=== PATIENT | male | born 1970 | race Caucasian/White ===

== ENCOUNTER 2017-04-15 08:51 | Inpatient (IN) | payer BC ==
[2017-04-09 11:10] LABS: BASOPHILS 0.2 %; BASOPHILS ABSOLUTE 0.01 10/3/uL (0.0-0.16); EOSINOPHILS 1.3 %; EOSINOPHILS ABSOLUTE 0.07 10/3/uL (0.0-0.53); HEMATOCRIT 41.7 % (40.0-51.0); HEMOGLOBIN 14.5 g/dL (13.6-17.8); LYMPHOCYTES 32.7 %; LYMPHOCYTES ABSOLUTE 1.83 10/3/uL (0.67-4.30); MEAN CORPUS HGB CONC 34.8 g/dL (32.0-36.0); MEAN CORPUSCULAR HEMOGLOB 31.3 pg (26.0-34.0); MEAN CORPUSCULAR VOLUME 89.9 fL (80-100); MEAN PLATELET VOLUME 9.8 fL (9.2-13.0); MONOCYTES 9.3 %; MONOCYTES ABSOLUTE 0.52 10/3/uL (0.21-1.20); NEUTROPHILS 56.5 %; NEUTROPHILS ABSOLUTE 3.16 10/3/uL (2.02-8.40); PLATELET COUNT 212 10/3/uL (150-400); RBC DISTRIBUTION WIDTH 11.9 % (12.0-16.0); RED CELL COUNT 4.64 10/6/uL (4.7-6.1); WHITE BLOOD CELLS 5.6 10/3/uL (4.5-10.5)
[2017-04-09 11:12] LABS: MANUAL DIFF NO %
[2017-04-09 11:19] LABS: INTERNATIONAL NORMAL RATI 1.2 UNITS (-); PARTIAL THROMBO TIME 32.4 SEC (22.5-37.2); PROTIME (NOT ORD) 14.8 SEC (12.0-14.5)
[2017-04-09 11:34] LABS: A/G RATIO 1.5 (0.7-1.9); ALBUMIN 4.1 G/DL (3.5-5.0); ALKALINE PHOSPHATASE 105 U/L (45-117); BUN (BLOOD UREA NITROGEN) 18 MG/DL (6-23); CALCIUM, SERUM 9.4 MG/DL (8.5-10.4); CHLORIDE, SERUM 106 MMOL/L (96-112); CO2 (CARBON DIOXIDE) 31 MMOL/L (24-34); CREATININE 1.02 MG/DL (0.70-1.30); GFR AFRICAN AMERICAN 102 ML/MIN (>=60); GFR NON AFRICAN AMERICAN 88 ML/MIN (>=60); GLOBULIN 2.8 G/DL (2.5-4.1); GLUCOSE, SERUM 101 MG/DL (60-99); SGOT(AST) 10 U/L (5-40); SGPT(ALT) 19 U/L (5-65); SODIUM, SERUM 143 MMOL/L (135-148); TOTAL BILIRUBIN 0.5 MG/DL (0-1.2); TOTAL PROTEIN 6.9 G/DL (6.0-8.5)
[2017-04-09 13:18] LABS: ASCORBIC ACID (UR NOT ORDER) 40 (NEG); BILIRUBIN, URINE NEGATIVE (NEG); KETONE, URINE NEGATIVE (NEG); LEUKOCYTE ESTERASE(NOT OR NEG (NEG); WBC (NOT ORDERED) (RFLEX) < 1 (0-5)
--- NOTE | ~2017-04-15 | OP ---
Record Of Operation [facility] [address] [place]. [address] NAME: MISA SÁNCHEZ : 72 STATUS : ADM IN PAT#: [id number] AGE: 47 ADM/REG DATE : 04/15/17 MR#: [id number] REPORT SERV DATE: 04/15/17 DICTATED BY: FALGUNI GAXIOLA DATE: 04/15/17 REPORT STATUS : Draft TRANSCRIBED BY: MODL DATE: 04/15/17 DATE OF PROCEDURE: 04/15/2017 PREOPERATIVE DIAGNOSIS: Right knee failed open reduction and internal fixation with valgus and retained hardware/significant osteoarthritis. POSTOPERATIVE DIAGNOSIS: Right knee failed open reduction and internal fixation with valgus and retained hardware/significant osteoarthritis. PROCEDURE PERFORMED: Right total knee arthroplasty complex with hardware removal. SURGEON: Falguni Gaxiola M.D. SALESPERSON CHIL[employer]: Karla Brand. ANESTHESIA: General under adductor block and local infusion. PROCEDURE IN DETAIL: The patient is clearly identified, and after obtaining informed consent, he is brought to the operating room at [facility] where he is induced under general anesthesia, has his right lower extremity prepped and draped in the usual manner, and this concluded, after having noted his previous incisions, one far lateral and one more anterolateral, but not appropriate for total knee arthroplasty, an anteromedial approach to the knee is formed. Subsequently, after time-out procedure is performed, Tenzin exsanguination is performed, tourniquet elevated to 350 mmHg and successfully tested, and through an approximately 8-inch incision, the skin is divided, fascial planes are elevated, and medial parapatellar approach is then formed. Fluid and synovitis are encountered. Exposing, elevating, and removing appropriate soft tissues, the knee is then carefully flexed, the patella is everted, and the lateral femoral metaphyseal with a diaphyseal plate is encountered. The screws are carefully removed. Two of the torque screws took some time to find sterile instruments for, but eventually are removed and the plate subsequently removed uneventfully. This concluded, attention focused initially on the patella where it is calipered, planed, and reproduced with size with a 41 patella. Subluxing the patella and flexing the knee, osteophytes are removed on the distal femur and the three distal femoral screws that are impinging and rubbing on the proximal lateral tibia articular surface have been removed. There is a significant paucity of bone to this area consistent with Hoffa's type fracture of the lateral condyle and posterior condyle and this all soft tissues are removed. Subsequently, the femoral canal is entered and vented reaming up to 18 mm. The distal femoral cut is utilized for the TC3 given the concern for stability of the patient's knee, given the fracture and reconstructions in the past. The distal cut is formed. Anterior, posterior, chamfer, and box cuts are all made for TC3 component size 5, and this looking quite good with an 8 posterior mm augment laterally. The proximal tibia is exposed. The extramedullary guide is utilized to performing the proximal division. The screw is encountered and careful dissection laterally reveals both screws present there are removed. The small anchor and the tibia is not visualized through the surgery. Subsequently, the RP size 5 tibia felt appropriate, it is prepared for, and trialed after removing meniscal tissues and to the whole case, significant synovitic-type impinging tissues. Trialing of 10 Record Of Operation [address] [place]. [address] NAME: MISA SÁNCHEZ : 72 STATUS : ADM IN PAT#: [id number] AGE: 47 ADM/REG DATE : 04/15/17 MR#: [id number] REPORT SERV DATE: 04/15/17 DICTATED BY: FALGUNI GAXIOLA DATE: 04/15/17 REPORT STATUS : Draft TRANSCRIBED BY: MICHELLE DATE: 04/15/17 mm thickness is quite good with full extension, flexion comfortably to just beyond 90 degrees. Given the patient's preoperative state, this is felt to be quite acceptable. This concluded, the area is copiously irrigated. On the back table, the components are made, and subsequently with standard cement technique, the components are then placed in position. Permanent polyethylene is placed, copious irrigation is performed, and the local infusion is applied. Tranexamic acid is utilized during the curing of the cement, and this all concluded, the joints are then carefully closed in layers over Hemovac drain and the leg is carefully cleansed and dressed. The patient is allowed to awaken and is transferred to the recovery room in stable condition having tolerated the procedure well. ESTIMATED BLOOD LOSS: 100 mL. FLUIDS: 1000 mL. TOURNIQUET TIME: 92 minutes. PATHOLOGY: Sent specimen. MICROBIOLOGY: None. COMPLICATIONS: None. SPONGE AND NEEDLE COUNTS: Reportedly correct. ANTIBIOTICS: Administered appropriately preoperatively and ordered to be discontinued within 23 hours. IMPLANTS: DePuy TC3 Sigma knee, femur size 5 with an 18 x 115 stem, tibia size 5 with a +10 rotating platform, TC3 component, patella size 41. KUMAR/MICHELLE Falguni Gaxiola M.D. / [id number] CC: Falguni Gaxiola M.D.
[~2017-04-15 08:51] MED LIST: CALCIUM/VIT D3 PO; DSS PO; LEXAPRO20 PO; LITHOBID3 PO; MIRALAX POWDER1 PKT PO; MOBIC15 MG PO; MULTIPLE VIT PO; PRILO PO; PROBIOTIC PO; RISP2 PO; SYN075 PO; WELLSR150 PO; WELLXL300 PO; [UNRECOGNIZED DRUG - OTHER] PO
[2017-04-16 06:14] LABS: HEMATOCRIT 32.6 % (40.0-51.0); HEMOGLOBIN 11.1 g/dL (13.6-17.8)
[2017-04-16 06:16] LABS: INTERNATIONAL NORMAL RATI 1.2 UNITS (-); PROTIME (NOT ORD) 15.5 SEC (12.0-14.5)
[2017-04-16 06:20] LABS: BUN (BLOOD UREA NITROGEN) 15 MG/DL (6-23); CHLORIDE, SERUM 105 MMOL/L (96-112); CO2 (CARBON DIOXIDE) 31 MMOL/L (24-34); CREATININE 0.93 MG/DL (0.70-1.30); GFR AFRICAN AMERICAN 114 ML/MIN (>=60); GFR NON AFRICAN AMERICAN 98 ML/MIN (>=60); GLUCOSE, SERUM 105 MG/DL (60-99); POTASSIUM, SERUM 4.5 MMOL/L (3.5-5.3); SODIUM, SERUM 140 MMOL/L (135-148)
[2017-04-16 06:21] LABS: CALCIUM, SERUM 8.1 MG/DL (8.5-10.4)
== END 2017-04-16 18:23 | DRG 470 ==
LOC: SDC/OF 08:51 → 3SO 17:39
PROVIDERS: Orthopaedic Surgery
PROC: 0SRC0J9 Replacement of Right Knee Joint with Synthetic Substitute, Cemented, Open Approach (ICD-10-PCS; principal; 2017-04-15 11:00)
DX: M17.11 Unilateral primary osteoarthritis, right knee (principal); E03.9 Hypothyroidism, unspecified; K21.9 Gastro-esophageal reflux disease without esophagitis; F31.9 Bipolar disorder, unspecified
CPT/HCPCS: 36415; 71020; 73560-RT; 80048; 80053; 81001; 85014; 85018; 85025; 85610; 85730; 86850; 86900; 86901; 87641; 88300; 88304; 88311; 93005; 97110-GP; 97161-GP; 97166-GO; 97530-GP; A9270-GY; C1713; C1776; J0690; J1170; J1885; J2250; J2270; J2405; J2710; J2795; J3010